=== PATIENT | male | born 1995 | race Caucasian/White ===

== ENCOUNTER 2021-07-15 01:09 | Inpatient (IN) | payer SELFPAY ==
[2021-07-15 01:18] VITALS: BP 153/97; PULSE 77; RESP 16; TEMP 36.6; O2SAT 97
[2021-07-15 01:19] VITALS: BMI 23.3
--- NOTE | 2021-07-15 01:38 | PC.ADMIT ---
[address] Admission Note by Danielle Lovell RN: patient presents to [facility] on a 96 hour hold with intermittent SI, catatonia, and psychosis. his mother found him in a catatonic state staring blankly at the wall, not blinking with his mouth locked open. patient was recently diagnosed with schizophrenia and put on medication. he was admitted 2 weeks ago to a psychiatric unit for the same issues. patient denies other medical comorbitidies. he is appropriate and calm on assessment. apparently his mother does not want him taking psychiatric medications. patient denies SI, HI, hallucinations. At [facility] where patient was in the ED prior to admission upon NPU there are notes about displaying psychotic behavior on assessments, od affect, making ninja like movements and prayer gestures. UDS and all labs unremarkable. The patient,Tasha Adams,25 y/o, was given written information regarding hospital policies, unit procedures and contact persons. Patient's smoking status: . Vital Signs - 8 hr 07/15/21 01:18 Temperature 97.9 F Pulse Rate 77 Respiratory Rate 16 Blood Pressure 153/97 Pulse Oximetry 97
[2021-07-15 06:00] VITALS: BP 113/71; PULSE 77; RESP 16; TEMP 36.4; O2SAT 97
--- NOTE | 2021-07-15 11:03 | W.PM.NPUH&PS ---
Providers/Chief Complaint Admitting Physician: Singh Nascimento MD Chief Complaint: Psychosis-96 hr hold HPI NPU History of Present Illness Tasha Adams is a 25 year old male who was admitted from an outside emergency room with the following report: Arrives with complaints of possible psychosis. ? Mother called EMS because patient staring blankly at wall, no blinking and mouth locked open.? EMS administered 2 mg intranasal Narcan with no effect noted.? EMS administered 3 mg Versed IV in route.? Patient apparently made vague comments about being suicidal yesterday were reported.? Patient is apparently his own guardian.? Discussed case with Christelle and she is trying to find a place for him and voluntary admission.? This is probably most reasonable and that patient is not able to care for himself and his mother stated yesterday that she thought he needed to be back in the psychiatric hospital.? Dr. Shaw did agree with starting him back on his Zyprexa at bedtime and continued sedation with Haldol with Benadryl and Versed as needed. Urine drug screen was negative. Affidavit patient arrives at [place] ER after being found in a somewhat catatonic state by his mother.? Patient, when more alert, was exhibiting psychosis.? Patient was recently hospitalized psychiatrically for the same issue.? Patient exhibits an altered level of consciousness and is unable to make good judgments at that time.? Patient requires a higher level of care. He was admitted to the neuropsychiatry unit for definitive treatment of these issues. He reports that he went a month or 2 with very poor sleep. He feels that is what precipitated his previous admission. He said he had an episode similar to what happened this time. He was frozen and staring into space. He did not want to describe it more. He is generally reluctant to talk about his symptoms. He says he does not know what they gave him in the hospital. It was mostly to help him sleep which helped a little. He says that he took it sometimes but missed several doses since he left the hospital. He said that his mother expressed some concerns because it was a new medication that he had not taken before. He generally minimized his symptoms. At one point he said that his sleep was not good since he left the hospital and the Zyprexa did not really help that much. At another time he said his sleep was fine. He consistently denied hearing any auditory or seeing any visual hallucinations. He denies any paranoia or trouble with his thinking. He did admit that he made statements about suicide but denies having any suicidal ideation in actuality. He was very disappointed when I told him that we needed to keep him for a couple of days to observe him since they felt that he needed to be in the hospital and filled out affidavits and put him on a 96-hour hold. I talked about changing him to a medication such as Seroquel that would be more effective for his sleep. At one point he agreed but then at the end of the conversation he said he did not want that and wanted to stay on the Zyprexa. He denies any side effects from the Zyprexa. He said that he was depressed as a teenager but did not get any treatment. He said it was normal teenage depression. He said he is currently between jobs but did not want to discuss it any further. Meds NPU Home Medications Medication Instructions Recorded Confirmed Last Taken Type olanzapine 5 mg tablet 5 mg PO BEDTIME 07/15/21 07/15/21 Unknown History Allergies Allergy/AdvReac Type Severity Reaction Status Date / Time No Known Allergies Allergy Verified 07/15/21 01:37 Mental Status Exam MSE Comments: This is a 25-year-old appropriate weight black male who appears approximately his stated age and is in no acute distress. He is pleasant and cooperative with the evaluation. He was found in bed at 10:30 AM but walked willingly to the day room to talk. He is fairly well groomed in hospital scrubs. He has fair eye contact. psychomotor activity is normal. Speech is at a regular rate and rhythm, normal volume, good articulation, not pressured. Alert, oriented X3 Attention and concentration appear to be normal. Memory is intact Mood is good. Affect is mildly dysphoric especially when told that he could not leave today Thought process is logical and goal-directed. Thought content: Denies auditory and visual hallucinations. No delusions or paranoia are noted. No current suicidal ideation. He denies homicidal ideation. Fund of knowledge is average. Insight and judgment appear to be poor. Impulse control is poor. Vitals/I&O/Wt Last Vital Signs Temp 97.6 F 07/15/21 06:00 Pulse 77 05/09/22 06:00 Resp 16 07/15/21 06:00 BP 113/71 07/15/21 06:00 Pulse Ox 97 07/15/21 06:00 Weight last 48 hrs Weight 67.755 kg Weight 67.585 kg A&P Assessment and plan (1) Bipolar disorder with psychotic features: Status: Acute Plan This is a 25-year-old black male with recent onset of psychosis associated with insomnia. Plan: 1. Continue Zyprexa 5 mg at bedtime 2. Continue every 15 minute checks for safety. 3. Encourage individual, group and milieu therapies. 4. Encourage sober living treatment after discharge at the highest level of care to which he is willing to commit. 5. We will monitor for safety for himself in the community prior to discharge. Involuntary Hold Information 96 Hour Hold: 96 Hour Involuntary Admission: Yes Attestations NPU Medical Necessity Statement*: Inpatient hospitalization is medically necessary and the clinically appropriate intervention at this time. We will initiate medications and make changes as indicated. He will be in the hospital for over 2 midnights. Likely length of stay 4-6 days Coding Level of Care Code Acute Tapping Machine Operator Automatic for No Eric Diagnoses Bipolar disorder with psychotic features F31.9
[2021-07-15 14:00] VITALS: BP 117/78; PULSE 78; RESP 17; TEMP 37.3; O2SAT 98
[2021-07-15 20:30] VITALS: BP 142/64; PULSE 87; RESP 18; TEMP 36.7; O2SAT 99
[2021-07-15] MEDS: OLANZapine 5 mg TABLET PO (20:32)
[2021-07-16 06:00] VITALS: RESP 17
--- NOTE | 2021-07-16 12:59 | W.PM.NPUPNS ---
Subjective NPU Subjective: He says that he is doing well. His mother talked with the nurses and was concerned that he was misusing the Zyprexa. She thinks that he took too much on the day that he had the catatonic state. He admits that he did take to that day thinking that he would get a better affect. He was not clear what effect he was looking for. He says that it also could have been because he worked out really hard and that is the reason that he locked up. He had told me before that this episode was similar to the one before he went into the hospital last month. He says that it was different but he could not describe how it was different. He is really wanting to minimize his symptoms in general. He wants to go home. He is agreeable to letting his mother monitor his medications. He promises that he will not take more than prescribed again. He continues to deny having any other symptoms rather than insomnia prior to the last hospitalization. Mental Status Exam MSE Comments: This is a 25-year-old appropriate weight black male who appears approximately his stated age and is in no acute distress. He is pleasant and cooperative with the evaluation. He was found walking in the hallway at 12:30 PM. He is fairly well groomed in hospital scrubs. He has fair eye contact. psychomotor activity is normal. Speech is at a regular rate and rhythm, normal volume, good articulation, not pressured. Alert, oriented X3 Attention and concentration appear to be normal. Memory is intact Mood is good. Affect is mildly dysphoric especially when told that he could not leave today Thought process is logical and goal-directed. Thought content: Denies auditory and visual hallucinations. No delusions or paranoia are noted. No current suicidal ideation. He denies homicidal ideation. Fund of knowledge is average. Insight and judgment appear to be poor. Impulse control is poor. Cognition: Patient Appearance: Appropriate Ability to Follow Directions: Excellent Patient Orientation (long list): Person, Place, Name, Age and Birthday Comprehension Ability: No Impairment Hallucination Type: None Delusion Description: Not Present Thought Process: Appropriate Behavior: Speech Pattern: Appropriate and Clear Vitals/I&O/Wt Last Vital Signs Temp 98.0 F 07/15/21 20:30 Pulse 87 07/15/21 20:30 Resp 17 07/16/21 06:00 BP 142/64 07/15/21 20:30 Pulse Ox 99 07/15/21 20:30 Weight last 48 hrs Weight 67.755 kg Weight 67.585 kg A&P Assessment and plan (1) Bipolar disorder with psychotic features: Status: Acute Plan This is a 25-year-old black male with recent onset of psychosis associated with insomnia. Plan: 1. Continue Zyprexa 5 mg at bedtime 2. Continue every 15 minute checks for safety. 3. Encourage individual, group and milieu therapies. 4. Encourage sober living treatment after discharge at the highest level of care to which he is willing to commit. 5. We will monitor for safety for himself in the community prior to discharge. Involuntary Hold Information 96 Hour Hold: 96 Hour Involuntary Admission: Yes Attestations NPU Medical Necessity Statement*: Inpatient hospitalization is medically necessary and the clinically appropriate intervention at this time. We will initiate medications and make changes as indicated. Coding Level of Care Code Acute Aging Box Hand for No Eric Diagnoses Bipolar disorder with psychotic features F31.9
[2021-07-16 14:00] VITALS: BP 120/69; PULSE 60; RESP 17; TEMP 36.8; O2SAT 99
--- NOTE | 2021-07-16 14:32 | PC.SOCIAL ---
Patient attended a portion of group.
[2021-07-16] MEDS: acetaminophen 325 mg Tablet 650 MG PO (14:44)
--- NOTE | 2021-07-16 14:46 | PC.NURSE ---
Patient with c/o headache rated a 5. Tylenol 650 mg po given for this.
[2021-07-16] MEDS: OLANZapine 5 mg TABLET PO (20:35)
[2021-07-16 21:13] VITALS: BP 138/76; PULSE 79; RESP 18; TEMP 36.9; O2SAT 97
[2021-07-17 06:00] VITALS: BP 137/80; PULSE 105; RESP 16; TEMP 37.9; O2SAT 97
--- NOTE | 2021-07-17 06:59 | W.PM.NPUDCS ---
Diagnoses at Discharge Discharge Diagnosis (1) Bipolar disorder with psychotic features: Status: Acute Reason for Visit Reason for Visit: Psychosis-96 hr hold Brief History: History of Present Illness Tasha Adams is a 25 year old male who was admitted from an outside emergency room with the following report: Arrives with complaints of possible psychosis. ? Mother called EMS because patient staring blankly at wall, no blinking and mouth locked open.? EMS administered 2 mg intranasal Narcan with no effect noted.? EMS administered 3 mg Versed IV in route.? Patient apparently made vague comments about being suicidal yesterday were reported.? Patient is apparently his own guardian.? Discussed case with Christelle and she is trying to find a place for him and voluntary admission.? This is probably most reasonable and that patient is not able to care for himself and his mother stated yesterday that she thought he needed to be back in the psychiatric hospital.? Dr. Shaw did agree with starting him back on his Zyprexa at bedtime and continued sedation with Haldol with Benadryl and Versed as needed. Urine drug screen was negative. Affidavit? patient arrives at [place] ER after being found in a somewhat catatonic state by his mother.? Patient, when more alert, was exhibiting psychosis.? Patient was recently hospitalized psychiatrically for the same issue.? Patient exhibits an altered level of consciousness and is unable to make good judgments at that time.? Patient requires a higher level of care. He was admitted to the neuropsychiatry unit for definitive treatment of these issues.? He reports that he went a month or 2 with very poor sleep.? He feels that is what precipitated his previous admission.? He said he had an episode similar to what happened this time.? He was frozen and staring into space.? He did not want to describe it more.? He is generally reluctant to talk about his symptoms.? He says he does not know what they gave him in the hospital.? It was mostly to help him sleep which helped a little.? He says that he took it sometimes but missed several doses since he left the hospital.? He said that his mother expressed some concerns because it was a new medication that he had not taken before.? He generally minimized his symptoms.? At one point he said that his sleep was not good since he left the hospital and the Zyprexa did not really help that much.? At another time he said his sleep was fine.? He consistently denied hearing any auditory or seeing any visual hallucinations.? He denies any paranoia or trouble with his thinking.? He did admit that he made statements about suicide but denies having any suicidal ideation in actuality.? He was very disappointed when I told him that we needed to keep him for a couple of days to observe him since they felt that he needed to be in the hospital and filled out affidavits and put him on a 96-hour hold.? I talked about changing him to a medication such as Seroquel that would be more effective for his sleep.? At one point he agreed but then at the end of the conversation he said he did not want that and wanted to stay on the Zyprexa.? He denies any side effects from the Zyprexa.? He said that he was depressed as a teenager but did not get any treatment.? He said it was normal teenage depression.? He said he is currently between jobs but did not want to discuss it any further. Hospital Course Hospital Course He slowly acclimated to the individual, group and milieu therapies provided. He was continued on Zyprexa 5 mg at bedtime. He did not exhibit any psychosis during his admission. He tolerated these doses and showed steady improvement during his stay. He was able to contract for safety outside hospital prior to discharge. During the hospitalization, patient had routine laboratory studies which were within normal limits except for few outliers. Additionally there was a general medical evaluation which was also within normal limits and revealed no new acute processes. Discharge Summary: At the time of discharge, lethality was denied and psychosis was resolving. Mood and anxiety were well managed. Patient endorsed a plan to follow-up with the aftercare recommendations of the treatment team. Patient was evaluated and deemed to be absent credible lethality, and had achieved the maximum benefit from an inpatient hospitalization, so was discharged. Involuntary Hold Information 96 Hour Hold: 96 Hour Involuntary Admission: Yes Mental Status Exam MSE Comments: This is a 25-year-old appropriate weight black male who appears approximately his stated age and is in no acute distress. He is pleasant and cooperative with the evaluation. He was found in bed awake at 6:45 AM. He is fairly well groomed in hospital scrubs. He has fair eye contact. psychomotor activity is normal. Speech is at a regular rate and rhythm, normal volume, good articulation, not pressured. Alert, oriented X3 Attention and concentration appear to be normal. Memory is intact Mood is good. Affect is mildly dysphoric especially when told that he could not leave today Thought process is logical and goal-directed. Thought content: Denies auditory and visual hallucinations. No delusions or paranoia are noted. No current suicidal ideation. He denies homicidal ideation. Fund of knowledge is average. Insight and judgment appear to be poor. Impulse control is poor. Cognition: Patient Appearance: Appropriate Ability to Follow Directions: Excellent Patient Orientation (long list): Person, Place, Name and Year Comprehension Ability: No Impairment Hallucination Type: None Delusion Description: Not Present Thought Process: Appropriate Affect: Affect Description: Appropriate Behavior: Patient Behavior: Appropriate Speech Pattern: Appropriate Discharge Data Vitals: Last Vital Signs Temp 100.2 F H 07/17/21 06:00 Pulse 105 H 07/17/21 06:00 Resp 16 07/17/21 06:00 BP 137/80 07/17/21 06:00 Pulse Ox 97 07/17/21 06:00 Discharge Plan Discharge Patient Disposition: Home Condition: Stable Prescriptions: Continued olanzapine 5 mg tablet 5 mg PO BEDTIME 0RF Discharge Orders: Discharge Order (Routine); Ordered 07/17/21 Ordered By: Singh Nascimento Discharge Diet: Regular Discharge Activity: Resume usual activity Patient Instructions: Opioid Safety Discharge Attestations NPU Time Spent in Discharge Care*: less than 30 min Specific Discharge Activities: Specific discharge activities: educating patient, discussing with bilingual case manager/social workers/dc planners, documenting/other paperwork and evaluating patient/reviewing data Coding Level of Care Code Acute [facility] [place] note Diagnoses Bipolar disorder with psychotic features F31.9
[2021-07-17 08:57] VITALS: BP 137/80; PULSE 105; RESP 16; TEMP 37.9; O2SAT 97
== END 2021-07-17 12:56 | disposition home or self-care (01) | DRG 885 ==
PROVIDERS: Admitting Provider Psychiatry & Neurology Psychiatry; Visit Provider Psychiatry & Neurology Psychiatry
DX: F31.9 Bipolar disorder, unspecified (principal); G47.00 Insomnia, unspecified
CPT/HCPCS: 97150; 97165